=== PATIENT | female | born 1965 | race Caucasian/White ===

== ENCOUNTER 2022-02-18 18:32 | Observation (INO) | payer OTHER ==
[2022-02-18 19:02] VITALS: BMI 21.9
[2022-02-18 22:17] LABS: BASO % 0.1 % (0-2.0); EOS % 0.2 % (0-4.5); HEMOGLOBIN 12.2 GM/dL (10.7-15.3); LYMPH % 19.7 % (8-40); MCH 29.1 pg (25.7-33.7); MCHC 33.8 g/dl (32.0-36.0); MEAN CELL VOLUME 86.2 fl (80-96); MEAN PLT VOLUME 9.4 fl (7.5-11.1); MONO % 4.4 % (3.8-10.2); NEUT % 75.6 % (42.8-82.8); PLATELET COUNT 218 10^3/uL (134-434); RBC 4.18 M/mm3 (3.60-5.2); RDW 13.3 % (11.6-15.6); WHITE BLOOD COUNT 6.6 K/mm3 (4.0-10.0)
[2022-02-18 22:39] LABS: ALBUMIN 3.8 g/dl (3.4-5.0); BLOOD UREA NITROGEN 18.1 mg/dL (7-18); MAGNESIUM 2.3 mg/dL (1.8-2.4)
[2022-02-18 22:42] LABS: CREATININE 0.5 mg/dL (0.55-1.3); PHOSPHOROUS 2.5 mg/dL (2.5-4.9)
[2022-02-18 22:43] LABS: TOT PROT 6.8 g/dl (6.4-8.2)
[2022-02-18 22:44] LABS: BILIRUBIN,TOTAL 0.4 mg/dL (0.2-1)
[2022-02-18 23:14] LABS: EPI CELLS 2 /uL (0-25.1); HYALINE CASTS 0 /uL (0-3.1); URINE APPEARANCE CLEAR; URINE BACTERIA 13 /uL (0-1359); URINE BILIRUBIN NEGATIVE (NEGATIVE); URINE COLOR YELLOW; URINE GLUCOSE (UA) NEGATIVE (NEGATIVE); URINE KETONE NEGATIVE (NEGATIVE); URINE LEUK ESTERASE NEGATIVE (NEGATIVE); URINE NITRITE NEGATIVE (NEGATIVE); URINE PROTEIN NEGATIVE (NEGATIVE); URINE RBC 15 /uL (0-23.9); URINE UROBILINOGEN 0.2 mg/dL (0.2-1.0); URINE WBC 2 /uL (0-25.8)
[2022-02-19 07:40] LABS: HEMATOCRIT 38.3 % (32.4-45.2); HEMOGLOBIN 12.9 GM/dL (10.7-15.3); MCHC 33.6 g/dl (32.0-36.0); MEAN CELL VOLUME 86.3 fl (80-96); MEAN PLT VOLUME 9.5 fl (7.5-11.1); PLATELET COUNT 228 10^3/uL (134-434); RBC 4.44 M/mm3 (3.60-5.2); RDW 13.4 % (11.6-15.6); WHITE BLOOD COUNT 4.3 K/mm3 (4.0-10.0)
[2022-02-19 08:08] LABS: BLOOD UREA NITROGEN 14.8 mg/dL (7-18); CALCIUM 8.8 mg/dL (8.5-10.1)
[2022-02-19 08:10] LABS: MAGNESIUM 2.4 mg/dL (1.8-2.4)
[2022-02-19 08:12] LABS: CREATININE 0.5 mg/dL (0.55-1.3); PHOSPHOROUS 3.4 mg/dL (2.5-4.9)
[2022-02-19] MEDS ORDERED: LORazepam 1 MG TABLET PO ONE ×2 (10:24→17:45)
[2022-02-19] MEDS ORDERED: LISINOPRIL 5 MG TABLET PO ONE (13:36)
[2022-02-19] MEDS ORDERED: LISINOPRIL 5 MG TABLET ONE (14:35)
[2022-02-20 07:24] LABS: BASO % 0.4 % (0-2.0); EOS % 1.3 % (0-4.5); HEMATOCRIT 38.3 % (32.4-45.2); HEMOGLOBIN 12.9 GM/dL (10.7-15.3); LYMPH % 37.4 % (8-40); MCH 29.2 pg (25.7-33.7); MCHC 33.8 g/dl (32.0-36.0); MEAN CELL VOLUME 86.4 fl (80-96); MEAN PLT VOLUME 9.3 fl (7.5-11.1); MONO % 7.8 % (3.8-10.2); NEUT % 53.1 % (42.8-82.8); PLATELET COUNT 212 10^3/uL (134-434); RBC 4.43 M/mm3 (3.60-5.2); RDW 13.3 % (11.6-15.6)
[2022-02-20 07:52] LABS: CALCIUM 8.9 mg/dL (8.5-10.1)
[2022-02-20 07:54] LABS: ALBUMIN 3.6 g/dl (3.4-5.0); BLOOD UREA NITROGEN 22.6 mg/dL (7-18); MAGNESIUM 2.1 mg/dL (1.8-2.4)
[2022-02-20 07:56] LABS: CREATININE 0.5 mg/dL (0.55-1.3)
[2022-02-20 07:57] LABS: BILIRUBIN,TOTAL 0.4 mg/dL (0.2-1); TOT PROT 6.6 g/dl (6.4-8.2)
[2022-02-20] MEDS: ASPIRIN COATED 81 MG TABLET.EC PO SCH (09:22)
[2022-02-20] MEDS: ESCITALOPRAM OXALATE 10 MG TABLET PO SCH (09:22)
[2022-02-20] MEDS: LISINOPRIL 5 MG TABLET PO SCH (09:31)
[2022-02-20] MEDS ORDERED: LORazepam 1 MG TABLET PO ONE ×2 (10:55→16:15)
[2022-02-20] MEDS ORDERED: ATORVASTATIN CA 40 MG TABLET (FP) PO SCH (22:00)
[2022-02-21 07:35] LABS: BASO % 0.3 % (0-2.0); EOS % 1.1 % (0-4.5); HEMATOCRIT 38.9 % (32.4-45.2); HEMOGLOBIN 13.2 GM/dL (10.7-15.3); LYMPH % 40.5 % (8-40); MCH 29.2 pg (25.7-33.7); MEAN CELL VOLUME 85.7 fl (80-96); MEAN PLT VOLUME 9.1 fl (7.5-11.1); MONO % 7.7 % (3.8-10.2); NEUT % 50.4 % (42.8-82.8); PLATELET COUNT 214 10^3/uL (134-434); RBC 4.53 M/mm3 (3.60-5.2); WHITE BLOOD COUNT 4.5 K/mm3 (4.0-10.0)
[2022-02-21 07:57] LABS: ALBUMIN 3.7 g/dl (3.4-5.0)
[2022-02-21 07:58] LABS: BLOOD UREA NITROGEN 18.1 mg/dL (7-18); MAGNESIUM 2.1 mg/dL (1.8-2.4)
[2022-02-21 08:01] LABS: BILIRUBIN,TOTAL 0.5 mg/dL (0.2-1); CREATININE 0.6 mg/dL (0.55-1.3); TOT PROT 6.7 g/dl (6.4-8.2)
[2022-02-21] MEDS ORDERED: ENOXAPARIN NA (PORCINE) 40 MG/0.4 ML DISP.SYRIN SQ SCH (10:00)
[2022-02-21 10:12] VITALS: BP 119/62; PULSE 76; TEMP 98.8
[2022-02-21] MEDS: LISINOPRIL 5 MG TABLET PO SCH (10:14)
[2022-02-21] MEDS: ASPIRIN COATED 81 MG TABLET.EC PO SCH (10:15)
[2022-02-21] MEDS: ESCITALOPRAM OXALATE 10 MG TABLET PO SCH (10:15)
== END 2022-02-21 13:41 | disposition home or self-care (01) ==
LOC: JER 18:32 → JERBED 23:37 → J4W 02-19 15:25
PROVIDERS: ADMIT Internal Medicine; ATTEND Nurse Practitioner Family
PROC: 3E023GC Introduction of Other Therapeutic Substance into Muscle, Percutaneous Approach (ICD-10-PCS; principal; 2022-02-18)
DX: R20.0 Anesthesia of skin (principal); R42 Dizziness and giddiness; Z85.3 Personal history of malignant neoplasm of breast; Z92.3 Personal history of irradiation; F41.9 Anxiety disorder, unspecified; Z89.022 Acquired absence of left finger(s); R10.9 Unspecified abdominal pain; S49.92XA Unspecified injury of left shoulder and upper arm, initial encounter; R20.8 Other disturbances of skin sensation; Y92.9 Unspecified place or not applicable
CPT/HCPCS: 36415; 70450-TC; 70551-TC; 70552-TC; 80048; 80053; 80061; 81003; 82533; 82962; 83036; 83735; 84100; 84443; 84484; 85025; 85027; 87086; 93005; 93010; 93880-TC; 96372; 97116-GP; 97161-GP; 99285-25; C9803-CS; G0378; U0003; U0005

== ENCOUNTER 2022-07-24 15:22 | Observation (INO) | payer OTHER ==
[2022-07-24 15:30] VITALS: BMI 24.7
[2022-07-24 16:43] LABS: BASO % 0.2 % (0-2.0); EOS % 0.5 % (0-4.5); HEMATOCRIT 36.4 % (32.4-45.2); HEMOGLOBIN 12.6 GM/dL (10.7-15.3); LYMPH % 16.6 % (8-40); MCH 29.6 pg (25.7-33.7); MCHC 34.6 g/dl (32.0-36.0); MEAN CELL VOLUME 85.6 fl (80-96); MEAN PLT VOLUME 8.6 fl (7.5-11.1); NEUT % 77.7 % (42.8-82.8); PLATELET COUNT 246 10^3/uL (134-434); RBC 4.25 M/mm3 (3.60-5.2); RDW 13.3 % (11.6-15.6); WHITE BLOOD COUNT 8.1 K/mm3 (4.0-10.0)
[2022-07-24 16:49] LABS: INR 1.05 (0.83-1.09); PROTHROMBIN TIME (PATIENT) 12.1 SEC (9.7-13.0)
[2022-07-24 16:51] LABS: ACTIVATED PTT 26.4 SECONDS (25.2-36.5)
[2022-07-24] MEDS ORDERED: MAG HYDROX/AL HYDROX/SIMETH 30 ML UNIT-DOSE CUP PO ONE (17:12)
[2022-07-24] MEDS ORDERED: FAMOTIDINE 20 MG TABLET PO ONE (17:12)
[2022-07-24] MEDS ORDERED: LIDOCAINE VISCOUS 2% ORAL/TOP 100 ML BOTTLE MM ONE (17:13)
[2022-07-24 17:26] LABS: ALBUMIN 3.8 g/dl (3.4-5.0); BLOOD UREA NITROGEN 9.7 mg/dL (7-18); CALCIUM 9.2 mg/dL (8.5-10.1); MAGNESIUM 2.1 mg/dL (1.8-2.4)
[2022-07-24 17:56] LABS: BILIRUBIN,TOTAL 0.3 mg/dL (0.2-1); CREATININE 0.6 mg/dL (0.55-1.3)
[2022-07-24] MEDS ORDERED: FAMOTIDINE 20 MG TABLET ONE (18:26)
[2022-07-24] MEDS ORDERED: LIDOCAINE VISCOUS 2% ORAL/TOP 15 ML UNIT-DOSE CUP ONE (18:27)
[2022-07-24] MEDS ORDERED: MAG HYDROX/AL HYDROX/SIMETH 30 ML UNIT-DOSE CUP ONE (18:27)
[2022-07-25] MEDS ORDERED: ESCITALOPRAM OXALATE 10 MG TABLET ONE (09:14)
[2022-07-25] MEDS ORDERED: LISINOPRIL 5 MG TABLET ONE (09:14)
[2022-07-25] MEDS ORDERED: ENOXAPARIN NA (PORCINE) 40 MG/0.4 ML DISP.SYRIN SQ ONE (09:14)
[2022-07-25 09:19] VITALS: RESP 15
[2022-07-25] MEDS ORDERED: ENOXAPARIN NA (PORCINE) 40 MG/0.4 ML DISP.SYRIN SQ SCH (10:00)
[2022-07-25] MEDS ORDERED: ESCITALOPRAM OXALATE 10 MG TABLET PO SCH (10:00)
[2022-07-25] MEDS ORDERED: LISINOPRIL 5 MG TABLET PO SCH (10:00)
[2022-07-25 12:20] VITALS: BP 136/73; PULSE 75; TEMP 98.4
[2022-07-25] MEDS ORDERED: ATORVASTATIN CA 40 MG TABLET (FP) PO SCH (22:00)
== END 2022-07-25 12:29 | disposition home or self-care (01) ==
LOC: JER 15:22 → JERBED 21:08
PROVIDERS: ADMIT Internal Medicine; ATTEND Nurse Practitioner Family
PROC: 3E023GC Introduction of Other Therapeutic Substance into Muscle, Percutaneous Approach (ICD-10-PCS; principal; 2022-07-24)
DX: Z85.3 Personal history of malignant neoplasm of breast (principal); F41.0 Panic disorder [episodic paroxysmal anxiety]; H53.8 Other visual disturbances; E78.5 Hyperlipidemia, unspecified; I10 Essential (primary) hypertension
CPT/HCPCS: 0241U-QW; 36415; 71046-TC-FY; 80053; 80061; 83735; 84443; 84484; 85025; 85610; 85730; 93005; 93010; 96372; 99285-25; G0378

== ENCOUNTER 2023-05-21 16:09 | Emergency (ER) | payer OTHER ==
[2023-05-21 16:35] VITALS: BP 162/79; PULSE 71; RESP 20; TEMP 98.2; BMI 32.8
[2023-05-21 18:03] LABS: BASO % 0.3 % (0-2.0); EOS % 0.3 % (0-4.5); HEMATOCRIT 37.8 % (32.4-45.2); HEMOGLOBIN 12.9 GM/dL (10.7-15.3); LYMPH % 19.8 % (8-40); MCH 29.2 pg (25.7-33.7); MCHC 34.3 g/dl (32.0-36.0); MEAN CELL VOLUME 85.3 fl (80-96); MEAN PLT VOLUME 9.2 fl (7.5-11.1); MONO % 5.1 % (3.8-10.2); NEUT % 74.5 % (42.8-82.8); PLATELET COUNT 218 10^3/uL (134-434); RBC 4.43 M/mm3 (3.60-5.2); RDW 13.3 % (11.6-15.6); WHITE BLOOD COUNT 5.8 K/mm3 (4.0-10.0)
[2023-05-21 18:12] LABS: INR 0.98 (0.83-1.09); PROTHROMBIN TIME (PATIENT) 11.4 SEC (9.7-13.0)
[2023-05-21 18:14] LABS: ACTIVATED PTT 26.3 SECONDS (25.2-36.5)
[2023-05-21 18:20] LABS: POTASSIUM 4.2 mmol/L (3.5-5.1)
[2023-05-21 18:23] LABS: ALBUMIN 4.1 g/dl (3.4-5.0); CALCIUM 8.9 mg/dL (8.5-10.1)
[2023-05-21 18:24] LABS: BLOOD UREA NITROGEN 14.5 mg/dL (7-18)
[2023-05-21 18:26] LABS: CREATININE 0.6 mg/dL (0.55-1.3)
[2023-05-21] MEDS ORDERED: AZITHROMYCIN IVPB 500 MG in DEXTROSE 5%-WATER - 250 ML IVPB ONE (18:27)
[2023-05-21] MEDS ORDERED: CEFTRIAXONE 1,000 MG in DEXTROSE 5%-WATER - 50 ML IVPB ONE (18:27)
[2023-05-21 18:28] LABS: BILIRUBIN,TOTAL 0.5 mg/dL (0.2-1); TOT PROT 7.4 g/dl (6.4-8.2)
[2023-05-21 18:31] LABS: N-TERMINAL BNP 24.1 pg/ml (5-125)
[2023-05-21] MEDS ORDERED: CEFTRIAXONE 1 GM/50 ML BAG ONE (19:01)
[2023-05-21 19:04] LABS: MAGNESIUM 2.2 mg/dL (1.8-2.4)
[2023-05-21] MEDS ORDERED: AZITHROMYCIN IVPB 500 MG/250 ML BAG IVPB ONE (19:40)
[2023-05-21 19:51] LABS: EPI CELLS 5 /uL (0-25.1); HYALINE CASTS 0 /uL (0-3.1); PH,URINE 7.5 (5.0-8.0); URINE APPEARANCE CLEAR; URINE BACTERIA 0 /uL (0-1359); URINE BILIRUBIN NEGATIVE (NEGATIVE); URINE COLOR YELLOW; URINE GLUCOSE (UA) NEGATIVE (NEGATIVE); URINE KETONE NEGATIVE (NEGATIVE); URINE LEUK ESTERASE NEGATIVE (NEGATIVE); URINE NITRITE NEGATIVE (NEGATIVE); URINE PROTEIN NEGATIVE (NEGATIVE); URINE RBC 32 /uL (0-23.9); URINE UROBILINOGEN 0.2 mg/dL (0.2-1.0); URINE WBC 2 /uL (0-25.8)
[2023-05-21 20:25] LABS: BLOOD UREA NITROGEN 12.3 mg/dL (7-18); CALCIUM 8.7 mg/dL (8.5-10.1)
[2023-05-21 20:29] LABS: CREATININE 0.6 mg/dL (0.55-1.3)
== END 2023-05-21 21:33 | disposition home or self-care (01) ==
LOC: JER 16:09
DX: R06.02 Shortness of breath (principal); J18.9 Pneumonia, unspecified organism
CPT/HCPCS: 36415; 71045-TC-FY; 80048; 80053; 81003; 83735; 83880; 84484; 85025; 85610; 85730; 87086; 93005; 93010; 99285-25

== ENCOUNTER 2025-02-27 22:30 | Emergency (ER) | payer OTHER ==
[2025-02-27 22:34] VITALS: BP 161/80; PULSE 91; RESP 20; TEMP 97.9; BMI 25.0
[2025-02-28] MEDS ORDERED: MAG HYDROX/AL HYDROX/SIMETH 30 ML UNIT-DOSE CUP ONE (00:22)
[2025-02-28] MEDS ORDERED: FAMOTIDINE 20 MG/50 ML IVPB 20 MG/50 ML MG IVPB ONE (00:23)
[2025-02-28] MEDS ORDERED: ACETAMINOPHEN INJECTION 100 ML ONE (00:23)
[2025-02-28] MEDS ORDERED: ONDANSETRON 4 MG/2 ML VIAL ONE (00:24)
[2025-02-28 00:31] LABS: ABSOLUTE IMMATURE GRANULOCYTES 0.02 x10^3/uL (0.0-0.031); BASOPHILS # 0.01 x10^3/uL (0.01-0.08); EOSINOPHIL % 0.1 % (0.7-5.8); EOSINOPHILS # 0.01 x10^3/uL (0.04-0.36); HEMATOCRIT 36.9 % (34.1-44.9); HEMOGLOBIN 12.5 g/dL (11.2-15.7); MCHC 33.9 g/dl (32.2-35.5); MEAN PLT VOLUME 11.1 fl (9.4-12.3); MONOCYTE # 0.48 x10^3/uL (0.24-0.86); MONOCYTE % 6.2 % (4.7-12.5); PLATELET COUNT 229 x10^3/uL (182-369); RDW 12.6 % (12.4-16.4)
[2025-02-28] MEDS: LACTATED RINGERS SOLUTION 1000 ML INFUS.BAG IV ONE (00:49)
[2025-02-28] MEDS: MAG HYDROX/AL HYDROX/SIMETH 30 ML UNIT-DOSE CUP PO ONE (00:49)
[2025-02-28] MEDS: ACETAMINOPHEN 1000 MG/100 ML BAG IVPB ONE (00:49)
[2025-02-28] MEDS: FAMOTIDINE 20 MG/50 ML IVPB 20 MG/50 ML MG IVPB ONE (00:50)
[2025-02-28] MEDS: ONDANSETRON 4 MG/2 ML VIAL IVPUSH ONE (00:50)
[2025-02-28 00:53] LABS: POTASSIUM 3.7 mmol/L (3.5-5.1)
[2025-02-28 00:56] LABS: CALCIUM 9.5 mg/dL (8.5-10.1)
[2025-02-28 00:57] LABS: ALBUMIN 4.1 g/dl (3.4-5.0); BLOOD UREA NITROGEN 16.6 mg/dL (7-18); MAGNESIUM 2.3 mg/dL (1.8-2.4)
[2025-02-28 01:00] LABS: CREATININE 0.6 mg/dL (0.55-1.3)
[2025-02-28 01:01] LABS: BILIRUBIN,TOTAL 0.5 mg/dL (0.2-1); TOT PROT 7.3 g/dl (6.4-8.2)
== END 2025-02-28 02:33 | disposition home or self-care (01) ==
LOC: JER 22:30
PROC: 3E033GC Introduction of Other Therapeutic Substance into Peripheral Vein, Percutaneous Approach (ICD-10-PCS; principal; 2025-02-27)
PROC: 3E033NZ Introduction of Analgesics, Hypnotics, Sedatives into Peripheral Vein, Percutaneous Approach (ICD-10-PCS; 2025-02-27)
PROC: 3E033GC Introduction of Other Therapeutic Substance into Peripheral Vein, Percutaneous Approach (ICD-10-PCS; 2025-02-27)
DX: K80.20 Calculus of gallbladder without cholecystitis without obstruction (principal); R10.13 Epigastric pain; R11.2 Nausea with vomiting, unspecified
CPT/HCPCS: 0241U-QW; 36415; 71045-TC-FY; 76705-TC; 80053; 83690; 83735; 84484; 85025; 93005; 93010; 99285-25; J0131